=== PATIENT | female | born 1960 | race Native Hawaiian/Other Pacific Islander ===

== ENCOUNTER 2017-01-07 16:46 | Emergency (ER) | payer OTHER ==
--- NOTE | ~2017-01-07 | CT101 ---
[facility] A Service of [facility] RADIOLOGY TEXT RESULTS PATIENT: VINNY WYLIE LOCATION: [facility] : 60 UNIT #: [id number] AGE: [address]: Memo Lynch MD SEX: F ORDER DR: [id number] [facility] [address] [place], [place] [address] [id number] E MR#: [id number] #: [id number] NAME: VINNY WYLIE : 1960 SEX: F STUDY DATE/TIME: 01/07/2017 19:55 UNIT: [facility]FA ROOM: STUDY DESCRIPTION: CT Maxillofacial Area Wo Cont Attending Physician: Memo Lynch M.D. Ordering Physician: Memo Lynch M.D. Primary Care Physician: Senia Ribeiro M.D. MEDICAL IMAGING REPORT This report is preliminary unless electronic signature is present EXAM CT maxillofacial without IV contrast COMPARISON March 02, 2009. INDICATIONS 56-year-old female with left-sided facial swelling and pressure for [address] imaging of the facial bones was performed. Coronal reformats were constructed. This CT exam was performed with one or more of the following radiation dose reduction techniques: Automatic exposure control, adjustment of mA and/or kV according to patient size, and iterative reconstruction. FINDINGS Lack of IV contrast limits evaluation of the soft tissues. Evaluation of the oral cavity and the right face is limited by streak artifact from dental amalgam. No evidence of subcutaneous fat stranding, fluid collection or mass lesion on this noncontrast exam. Visualized airway is widely patent. Mastoid air cells and middle ears are well aerated. There is fluid filling versus mild mucosal thickening of the posterior right ethmoid air cells and a small fluid level seen in the dependent sphenoid sinus. There is also mucosal thickening of the frontal sinuses. Mucous retention cyst versus small polyp in the anterior left maxillary sinus. Mild mucosal thickening of the right maxillary sinus. No significant paranasal sinus air-fluid levels. There is a caries of the first left maxillary premolar tooth. There is also questionable caries of the anterior-most left maxillary molar. Multilevel degenerative facet disease and uncinate hypertrophy of the cervical spine. No evidence of acute fracture on the current exam. No suspicious osseous lesions. [facility]. [facility] A Service of [facility] RADIOLOGY TEXT RESULTS PATIENT: VINNY WYLIE LOCATION: [facility] : 60 UNIT #: [id number] AGE: [address]: Memo Lynch MD SEX: F ORDER DR: IMPRESSION 1. Mild diffuse paranasal sinus disease. No significant air-fluid level to suggest an acute sinusitis. 2. Dental caries. 3. No acute fracture or destructive osseous lesions. Dictated by... Eulalio Ovalles M.D. THIS IS AN ELECTRONICALLY VERIFIED REPORT Eulalio Ovalles M.D. at 01/13/2017 8:04 AM JUVE/faye TD: 01/08/2017 00:40 JOB #: [id number] MEDICAL IMAGING REPORT Page 1 of 1 COPY
[~2017-01-07 16:46] MED LIST: ACETAMINOPHEN PO; ALBUTEROL 0.5ML INH; ALL DAY ALLERGY10 MG PO; AMOXICILLIN PO; ASPIRIN ENTERI325 M1 PO; ASPIRIN PO; ASPIRINEC PO; AUGMENTIN1 TAB.SR1 PO; CHOLESTEROL MED; CLARITHROMYCIN500 MG PO; DICLOFENAC PO; FAMOTIDINE PO; FERROUS SULFATE PO; FLONASE 0.05% N16 G1; IBUPROFEN800 MG PO; LOPID600 MG PO; METFORMIN HCL500 M1 PO; MILK OF MAGNESIA PO; PEPCID AC20 M2 PO; PHENERGAN25 M1 PO; PREDNISONE50 MG PO; PRILOSEC PO; PROTONIX PO; VERMOX100 MG PO; ZANTAC PO; ZYRTEC PO; [UNRECOGNIZED DRUG - OTHER] PO
== END 2017-01-07 21:43 | disposition home or self-care (01) ==
LOC: CED 16:46
DX: K11.20 Sialoadenitis, unspecified (principal)
CPT/HCPCS: 70486; 99284